=== PATIENT | female | born 1955 | race Caucasian/White ===

== ENCOUNTER → 2023-02-09 | Outpatient (CLI) | payer MEDICARE, OTHER ==
[2023-02-09 13:28] LABS: BASOPHILS ABSOLUTE AUTO 0.03 K/mm3 (0.00-0.23); BASOPHILS PERCENT AUTO 0 % (0-2); EOSINOPHILS ABSOLUTE AUTO 0.21 K/mm3 (0.00-0.68); EOSINOPHILS PERCENT AUTO 2 % (0-6); Hemoglobin 14.4 g/dL (11.5-16.0); IMMATURE GRAN ABSOLUTE AUTO 0.03 K/mm3 (0.00-0.10); IMMATURE GRAN PERCENT AUTO 0 % (0-1); LYMPHOCYTES ABSOLUTE AUTO 5.44 K/mm3 (0.84-5.20); LYMPHOCYTES PERCENT AUTO 49 % (21-46); MONOCYTES ABSOLUTE AUTO 0.69 K/mm3 (0.16-1.47); MONOCYTES PERCENT AUTO 6 % (4-13); Mean Corpuscular HGB 31.4 pg (26.0-34.0); Mean Corpuscular HGB Conc 34.3 g/dL (31.5-36.5); Mean Corpuscular Volume 92 fL (80-100); Mean Platelet Volume 10.3 fL (9.1-12.4); NEUTROPHILS ABSOLUTE AUTO 4.81 K/mm3 (1.96-9.15); NEUTROPHILS PERCENT AUTO 43 % (41-73); Platelet Count 343 K/mm3 (150-400); RDW Coefficient Variation 12.1 % (11.7-14.2); RDW Standard Deviation 40.3 fL (35.1-46.3); Red Blood Cell Count 4.59 M/mm3 (3.80-5.20); White Blood Cell Count 11.21 K/mm3 (4.00-11.30)
[2023-02-09 13:38] LABS: Albumin, Blood 3.8 g/dL (3.4-5.0); Albumin/Globulin Ratio 0.9 (0.8-1.8); Bilirubin, Total 0.5 mg/dL (0.1-1.0); Bun/Creatinine Ratio 17.7 (12.0-20.0); Calcium, Blood 9.9 mg/dL (8.5-10.1); Creatinine, Blood 0.62 mg/dL (0.40-1.00); Globulin, Blood 4.2 g/dL (2.2-4.0)
[2023-02-09 14:09] LABS: CHOL/HDL RATIO 5.7; Cholesterol 241 mg/dL (50-200); HDL Cholesterol 42 mg/dL (>39); LDL/HDL RATIO 3.3; Low Density Lipoprotein Chol 139 mg/dL (<110); Triglycerides 298 mg/dL (30-160); Very Low Density Lipoprot Chol 59 mg/dL (6-32)
[2023-02-10 22:09] LABS: HEMOGLOBIN A1C 8.2 % (4.8-5.6)
== END | disposition home or self-care (01) ==
LOC: LAB SHORT 13:20 → LAB 13:20
PROVIDERS: Chiropractor; Physician Assistant
DX: E11.9 Type 2 diabetes mellitus without complications (principal); E78.5 Hyperlipidemia, unspecified; R42 Dizziness and giddiness
CPT/HCPCS: 80053; 80061; 83036; 85025

== ENCOUNTER 2023-08-02 11:22 | Emergency (ER) | payer MEDICARE, OTHER ==
[~2023-08-02] VITALS: Ht 177.8 cm; Wt 86.2 kg
[2023-08-02] MEDS ORDERED: SCOOTER (14:39)
[2023-08-02] MEDS ORDERED: TRAM50 PO (15:01)
[2023-08-02 15:41] VITALS: BP 113/90
[2023-08-08] MEDS ORDERED: METFORMIN ER G500 MG PO (11:30)
[2023-08-08] MEDS ORDERED: JARDIANCE25 MG PO (11:31)
== END 2023-08-02 15:40 | disposition home or self-care (01) ==
LOC: ER 11:22
DX: S82.851A Displaced trimalleolar fracture of right lower leg, initial encounter for closed fracture (principal); M25.531 Pain in right wrist; X50.1XXA Overexertion from prolonged static or awkward postures, initial encounter; W18.30XA Fall on same level, unspecified, initial encounter; Z88.5 Allergy status to narcotic agent
CPT/HCPCS: 27818; 73090; 73100; 73600; 96374-59; 99283-25; A9270; J1885; J2704; J7030

== ENCOUNTER 2023-08-09 10:46 | Day surgery (SDC) | payer OTHER, MEDICARE ==
[2023-08-09] VITALS (14 sets, daily range): BP systolic 138–157; BP diastolic 50–93
[~2023-08-09] VITALS: Ht 154.9 cm; Wt 75.8 kg
[~2023-08-09 10:46] MED LIST: JARDIANCE25 MG PO; METFORMIN ER G500 MG PO; SCOOTER; TRAM50 PO
--- NOTE | 2023-08-09 12:38 | NUR ---
History, Chart, Medications and Allergies reviewed before start of procedure. Lungs clear T/O to Auscultation. Patient confirms NPO status and agrees with scheduled surgery. Pre-Op teaching done. Pt verbalizes understanding.
--- NOTE | 2023-08-09 15:08 | NUR ---
08/09/23 Julianne Wills UPON ENTERING THE OR THE PATIENT RECEIVED A RIGHT ADDUCTOR CANAL BLOCK AND A RIGHT POPITEAL SCIATIC NERVE PERFORMED BY AT BEDSIDE.
--- NOTE | 2023-08-09 17:24 | NUR ---
PATIENT ARRIVED FROM PACU TODAY. POD 0 RIGHT ANKLE ORIF PATIENT IS DROWSY BUT ANSWERS QUESTIONS APPROPRIATELY. PATIENT IS ON 3L NC WITH >90% OXYGEN SATS AT THIS TIME. PATIENT HAD X2 NERVE BLOCKS DURING THE PROCEDURE BUT PATIENT IS ABLE TO WIGGLE ALL FINGERS AND TOES WHEN ASKED. DUETO THE NERVE BLOCKS PATIENT REFUSES PAIN MEDS AT THIS TIME. PATIENT IS TOLERATING SMALL AMOUNTS OF PO INTAKE. SHE IS CURRENTLY LAYING IN BED WITH CALL LIGHT IN REACH. THE PLAN IS TO HAVE PATIENT WORK WITH PHYSICAL AND OCCUPATIONAL THERAPY TOMORROW THEN IF SHE IS CLEARED SHE CAN BE DISCHARGED HOME. THE PLAN IS TO ALSO CONTINUE PAIN MANAGEMENT.
--- NOTE | 2023-08-09 22:19 | NUR ---
BEDSIDE REPORT GIVEN TO SABINA WHITE.
[2023-08-10 04:04] VITALS: BP 135/69
--- NOTE | 2023-08-10 06:11 | NUR ---
SHIFT SUMMARY PT IS POD#1 FOR AN ORIF OF HER RIGHT ANKLE. OF THE 399 POST OP FOCUSED ASSESSMENT, PT IS STILL UNABLE TO FEEL ANY SENSATION ON HER RIGHT TOES. PT REQUESTED A CPAP MACHINE LAST NIGHT AND RT WAS ABLE TO ASSIST THE PT WITH THAT. PT WAS ABLE TO REST FOR THE MAJORITY OF THE SHIFT WITH NO ACUTE EVENTS OCCURRING OVERNIGHT. PT TO WORK WITH PHYSICAL THERAPY TODAY BEFORE POSSIBLE DISCHARGE. BED IS IN LOWEST POSITION, CALL LIGHT IS WITHIN REACH.
[2023-08-10 07:32] VITALS: BP 149/85
--- NOTE | 2023-08-10 13:15 | NUR ---
PT REPORTS BEING ABLE TO FEEL SLIGHT PRESSURE ON R TOES. UNABLE TO WIGGLE STILL
[2023-08-10 15:03] VITALS: BP 136/95
[2023-08-10 15:04] VITALS: BP 136/95
--- NOTE | 2023-08-10 16:14 | NUR ---
SHIFT SUMMARY POD 1 R ORIF PT STILL DENIES PAIN, MINIMAL SENSATION TO RLE. UNABLE TO WIGGLE TOES. PT WORKED WITH THERAPY AND DID WELL, SOME DIFFICULTY WITH BASELINE TREMORS. CAST REMAINS CDI, PLAN IS FOR PATIENT TO DISCHARGE TO [facility] WITH HOME HEALTH TOMORROW MORNING. PT AGREEABLE AND EXCITED WITH PLAN.
[2023-08-10 20:10] VITALS: BP 136/83
[2023-08-11 04:40] VITALS: BP 135/75
--- NOTE | 2023-08-11 06:32 | NUR ---
SHIFT SUMMARY PT IS POD#2 FOR AN ORIF OF HER RIGHT ANKLE. PT IS ABLE TO NOW WIGGLE HER TOES WITH SOME SENSATION. PT IS DISCHARGING WITH HER DAUGHTER AT 10:30 TO GO TO HER DAUGHTER'S HOME FOR CARE. IV REMOVED LAST NIGHT D/T INFILTRATION AND INFLAMMATION. NO NEW IV INSERTED. PT RESTED FOR THE MAJORITY OF THE SHIFT W/NO ACUTE EVENTS OCCURRING OVERNIGHT. VITAL SIGNS STABLE. BED IS IN LOWEST POSITION, CALL LIGHT IS WITHIN REACH.
[2023-08-11] MEDS ORDERED: ASPI81CH PO (07:25)
[2023-08-11] MEDS ORDERED: OXYC5 PO (07:25)
[2023-08-11] MEDS ORDERED: SULTRIDS PO (07:26)
[2023-08-11] MEDS ORDERED: ONDA4 PO (07:26)
[2023-08-11 07:32] VITALS: BP 126/78
--- NOTE | 2023-08-11 09:25 | NUR ---
DISCHARGE NOTE: PATIENT AND FAMILY MEMBER WERE EDUCATED ON DISCHARGE INSTRUCTIONS. PATIENT AND FAMILY MEMBER VERBALIZED UNDERSTANDING OF INSTRUCTIONS AND HAD NO FURTHER QUESTIONS AT THIS TIME. PATIENTS BRITTANY ALBRECHT WAS CALLED IN AT [facility] ON [address] IN [facility] AT 0905 TODAY. PATIENT HAS HER OTHER PERSCRIPTIONS ALREADY FILLED PRIOR TO SURGERY. PATIENT HAS DENIED PAIN AT THIS TIME AND REFUSES PAIN MEDS. HER RIGHT ANKLE HAS A SOFT SPLINT WITH SWAPNIL WRAP THAT IS C/D/I. DENIES NUMBNESS OR TINGLING IN ALL EXTREMITIES. SHE IS ABLE TO MOVE ALL FINGERS AND TOES WHEN ASKED. SHE IS TOLERATING PO INTAKE AND IS VOIDING/PASSING GAS. PATIENT IS DRESSED AND HAS PERSONAL ITEMS IN THE ROOM GATHERED. [facility] 1030 THIS MORNING TO [place] TO BE DROPPED OFF AT HER DAUGHTERS HOME. PATIENT IS CURRENTLY LAYING IN BED WITH FAMILY MEMBERS AT BEDSIDE WITH CALL LIGHT IN REACH WAITING FOR TRANSPORT TO ARRIVE.
--- NOTE | 2023-08-11 11:24 | NUR ---
[facility] JUST ARRIVED TO TAKE HER TO [place]. PATIENT IS DRESSED AND HAS PERSONAL BELONINGS IN THE ROOM GATHERED. SHE WAS ABLE TO STAND PIVIOT FROM THE BED TO THE WHEELCHAIR WITH HER FWW WITH HER RIGHT FOREARM ATTACHMENT.
== END 2023-08-11 11:26 | disposition home or self-care (01) ==
LOC: ORD 10:46 → ORSCMMR 10:46 → SURS 10:46 → ORSCMMR 10:49 → SURS 16:58 → ORD 08-11 11:26
PROVIDERS: Orthopaedic Surgery
PROC: 0QSJ04Z Reposition Right Fibula with Internal Fixation Device, Open Approach (ICD-10-PCS; principal; 2023-08-09 12:00)
PROC: 0QSG04Z Reposition Right Tibia with Internal Fixation Device, Open Approach (ICD-10-PCS; principal; 2023-08-09 12:00)
DX: S82.851A Displaced trimalleolar fracture of right lower leg, initial encounter for closed fracture (principal); W01.0XXA Fall on same level from slipping, tripping and stumbling without subsequent striking against object, initial encounter; E11.9 Type 2 diabetes mellitus without complications; F41.9 Anxiety disorder, unspecified; Z79.84 Long term (current) use of oral hypoglycemic drugs; Z79.899 Other long term (current) drug therapy; Z87.891 Personal history of nicotine dependence
CPT/HCPCS: 82947; 94660; 94762; 97112; 97162; 97165; 97530; A9270; C1713; C1769; J0690; J1100; J1170; J1885; J2250; J2405; J2704; J3010; J3480; J7050; J7120

== ENCOUNTER → 2024-11-05 | Outpatient (CLI) | payer MEDICARE, OTHER ==
[~2024-11-05] MED LIST changes: +ASPI81CH PO; +ONDA4 PO; +OXYC5 PO; +SULTRIDS PO
[2024-11-05 16:00] LABS: Source, Urine Clean Catch
[2024-11-05 16:37] LABS: Appearance, Urine Hazy (Clear); Bilirubin, Urine Neg (Neg); Blood, Urine 3+ (Neg); Color, Urine Yellow (P-Yellow); Glucose Qualitative, Urine Neg (Neg); Ketones, Urine Neg (Neg); Leukocyte Esterase, Urine Neg (Neg); Nitrite, Urine Neg (Neg); Protein, Urine Neg (Neg); Urobilinogen, Urine NORM (Normal)
[2024-11-05 16:46] LABS: Bacteria Mod /hpf; Squamous Epithelial Cells Few /hpf (Few); White Blood Cells, Urine 50-100 /hpf (0-5)
[2024-11-05 18:32] LABS: Microalb/Creat Ratio UR, Rand 30.388 mg/g (0.000-30.000); Microalbumin, Random Urine 31.3 mg/L (0.000-20.000)
== END | disposition home or self-care (01) ==
LOC: LAB 15:38 → LAB SHORT 15:38
PROVIDERS: Family Medicine
DX: E11.9 Type 2 diabetes mellitus without complications (principal); R35.0 Frequency of micturition
CPT/HCPCS: 81001; 82043; 82570; 87077; 87086; 87186